=== PATIENT | male | born 1970 | race Caucasian/White ===

== ENCOUNTER 2018-04-27 11:58 | Emergency (ER) | payer OTHER ==
[~2018-04-27] VITALS: Ht 180.3 cm; Wt 111.8 kg
[2018-04-27] MEDS ORDERED: TOPI25TA10 (12:29)
[2018-04-27] MEDS ORDERED: VENL150T24 (12:29)
[2018-04-27] MEDS ORDERED: ASPI1TAB15 (12:29)
[2018-04-27] MEDS ORDERED: GABA-843 PO (12:29)
[2018-04-27] MEDS ORDERED: LOPR1TAB6 PO (12:29)
[2018-04-27] MEDS ORDERED: novolog insulin pump (12:29)
[2018-04-27] MEDS ORDERED: LIPI20TA PO (12:29)
[2018-04-27] MEDS ORDERED: TRAZ-160 PO (12:29)
[2018-04-27] MEDS ORDERED: LISI-538 PO (12:29)
[2018-04-27 12:41] LABS: BASO # 0.1 10^3/uL (0.0-0.2); EOS # 0.6 10^3/uL (0.0-0.50); EOS % 9.3 % (0.0-3.0); HEMATOCRIT 43.9 % (42.0-52.0); LYMPH # 1.7 10^3/uL (1.5-4.5); LYMPH % 26.8 % (24.0-44.0); MEAN CORPUSCULAR HEMOGLOBIN 30.6 pg (27.0-33.0); MEAN CORPUSCULAR HGB CONC 34.2 g/dl (32.0-36.5); MEAN CORPUSCULAR VOLUME 89.6 fl (80.0-96.0); MONO # 0.5 10^3/uL (0.0-0.8); MONO % 7.4 % (0.0-5.0); NEUTROPHILS # 3.4 10^3/uL (1.8-7.7); NEUTROPHILS % 55.2 % (36.0-66.0); PLATELET COUNT, AUTOMATED 205 10^3/uL (150-450); WHITE BLOOD COUNT 6.2 10^3/uL (4.0-10.0)
[2018-04-27 13:15] LABS: ALT/SGPT 42 U/L (12-78); BILIRUBIN,DIRECT 0.2 MG/DL (0.0-0.2); BILIRUBIN,TOTAL 0.7 MG/DL (0.2-1.0); BLOOD UREA NITROGEN 15 MG/DL (7-18); CALCIUM LEVEL 8.5 MG/DL (8.5-10.1); CARBON DIOXIDE LEVEL 27 MEQ/L (21-32); CHLORIDE LEVEL 106 MEQ/L (98-107); CPK CREATINE PHOSPHOKINASE 70 U/L (39-308); FREE T4 0.84 NG/DL (0.76-1.46); GLOMERULAR FILTRATION RATE > 60.0 (>60); GLUCOSE, FASTING 154 MG/DL (70-100); LIPASE 69 U/L (73-393); MB/CK RELATIVE INDEX 1.71 (< OR =4); POTASSIUM SERUM 4.2 MEQ/L (3.5-5.1); SODIUM LEVEL 140 MEQ/L (136-145); TOTAL PROTEIN 6.6 GM/DL (6.4-8.2); TROPONIN I < 0.02 NG/ML (< 0.10)
[2018-04-27 13:20] LABS: INR 0.95; PROTHROMBIN TIME 12.8 SECONDS (12.1-14.4)
[2018-04-27 13:21] LABS: PARTIAL THROMBOPLASTIN TIME 29.5 SECONDS (25.4-37.6)
[2018-04-27] MEDS ORDERED: ISOVUE-370 76% 100ML VIAL (Q9967) As Ordered ONE (13:44)
[2018-04-27] MEDS ORDERED: CLOPIDOGREL 300 MG TAB (PLAVIX) PO STA (14:52)
[2018-04-27] MEDS ORDERED: HEPARIN DRIP 25,000 UNITS in APPROPRIATE DILUENT 1 EA IV SCH (14:53)
[2018-04-27] MEDS ORDERED: HEPARIN SOD (PORCINE) 5000 UNITS/ML VIAL IV ONE (15:00)
[2018-04-27] MEDS ORDERED: HEPARIN 25,000 UNITS/250 ML D5W BAG (100 UNITS/ML) As Ordered ONE (15:02)
--- NOTE | 2018-04-27 15:27 | REP ---
CT ANGIOGRAM CHEST: CT ANGIO CHEST: TECHNIQUE: Axial contrast enhanced images from the thoracic inlet to the upper abdomen using 100 mL Isovue 370 intravenous contrast material with multiplanar reformations. There is no CT evidence of pulmonary embolism. The ascending thoracic aorta is dilated up to 4.7 cm in AP dimension. No aortic dissection is seen. Heart appears slightly enlarged. There is no pleural or pericardial effusion. There is on mediastinal, hilar, or chest wall lymphadenopathy. There is no infiltrate in either lung. There is a small hiatal hernia. In the visualized portions of the upper abdomen a cyst is seen in the upper pole of each kidney, the larger is on the left 3.8 cm in diameter. These are only partially imaged. IMPRESSION: No CT evidence of pulmonary embolism. Dilated ascending thoracic aorta with a maximum AP diameter of 4.7 cm. No evidence of aortic dissection. Small hiatal hernia. Electronically Signed by Rogelio Franks MD 04/27/2018 05:25 P
[2018-04-27 15:55] VITALS: BP 146/78
--- NOTE | 2018-04-27 21:13 | ECGEPIP ---
Stationary ECG Study [facility] - ED Test Date: 2018-04-27 Pat Name: FRANCISCO CHEUNG Department: Room: - Gender: M Accredited Legal Secretary: JOSE : 1970 Requested By: KWAKU Yang Order Number: [id number] Reading MD: Ruben Silverman Measurements Intervals [place] Rate: 57 P: 17 OR: 204 QRS: -78 QRSD: 113 T: 28 QT: 387 QTc: 377 Interpretive Statements SINUS BRADYCARDIA INDETERMINATE AXIS PATTERN CONSISTENT WITH PULMONARY DISEASE MODERATE INTRAVENTRICULAR CONDUCTION DELAY NO PRIORS FOR COMPARISON Electronically Signed On 04-27-2018 21:13:18 EST by Ruben Silverman
== END 2018-04-27 15:56 | disposition short-term general hospital (02) ==
LOC: M ED 11:58
DX: I20.0 Unstable angina (principal); E11.42 Type 2 diabetes mellitus with diabetic polyneuropathy; I10 Essential (primary) hypertension; E78.5 Hyperlipidemia, unspecified; G47.33 Obstructive sleep apnea (adult) (pediatric)
CPT/HCPCS: 71275; 80048; 80076; 82550; 82553; 83690; 84439; 84443; 84484; 85025; 85610; 85730; 93005; 93041; 94760; 99285; Q9967

== ENCOUNTER → 2018-06-09 | Outpatient (CLI) | payer OTHER ==
[~2018-06-09] MED LIST: ASPI1TAB15; E-Z-GAS II EFFERVESCENT PACKET (SODIUM BICARB./CITRIC ACID/SIMETHICONE) As Ordered ONE; E-Z-HD 98% w/w 340GM SUSP BTL As Ordered ONE; E-Z-PAQUE 96% w/w SUSP 176GM BTL As Ordered ONE; GABA-843 PO; LIPI20TA PO; LISI-538 PO; LOPR1TAB6 PO; TOPI25TA10; TRAZ-160 PO; VENL150T24; novolog insulin pump
--- NOTE | 2018-06-09 09:40 | REP ---
Examination Requested: Esophagram Barium Swallow Reason For Patient Visit: Gastro-Esophageal Reflux Disease Without Esophagitis. Reason For Exam/Comment: GERD W/O Esophagitis Esophagram The procedure was performed under the personal supervision of Dr. Austin. The images were reviewed with Dr. Austin. A single PA chest x-ray is submitted as a ordinary seaman film. The superior mediastinal structures are midline. The heart size is within normal limits. The lungs are clear. Liquid barium and gas producing granules were given in the erect position as well as liquid barium in the prone oblique positions in order to perform a double contrast esophagram examination. Oral and pharyngeal stages of the examination were unremarkable. Esophageal transport is efficient and there is no esophagitis, stricture, or mucosal ring noted. There is is a small hiatal hernia noted. Gastroesophageal reflux is demonstrated past the level of the paige. Impression: 1. There is a small hiatal hernia. 2. There is gastroesophageal reflux past the level of the paige. 0.9 minutes of fluoroscopy time was utilized for this procedure. Reviewed by CEE Gomes 06/09/2018 09:04 A Electronically Signed by Kelvin Austin MD 06/09/2018 09:30 A
== END ==
LOC: M RAD 07:58
PROVIDERS: ATTEND Internal Medicine Cardiovascular Disease
DX: K21.9 Gastro-esophageal reflux disease without esophagitis (principal); K44.9 Diaphragmatic hernia without obstruction or gangrene

== ENCOUNTER → 2021-03-28 | Outpatient (CLI) | payer OTHER ==
[~2021-03-28] MED LIST changes: +ASPI-546; -ASPI1TAB15; +GABA-282 PO; -GABA-843 PO; -LISI-538 PO; +LISI20TA33 PO; -TRAZ-160 PO; +TRAZ-252 PO
== END ==
LOC: M RAD 07:45
PROVIDERS: ATTEND Physician Assistant Medical
DX: R13.10 Dysphagia, unspecified (principal); K21.9 Gastro-esophageal reflux disease without esophagitis; K44.9 Diaphragmatic hernia without obstruction or gangrene

== ENCOUNTER → 2021-04-28 | Outpatient (CLI) | payer OTHER ==
[~2021-04-28] MED LIST changes: +BUPR150T12 PO; -E-Z-GAS II EFFERVESCENT PACKET (SODIUM BICARB./CITRIC ACID/SIMETHICONE) As Ordered ONE; -E-Z-HD 98% w/w 340GM SUSP BTL As Ordered ONE; -E-Z-PAQUE 96% w/w SUSP 176GM BTL As Ordered ONE; +PANT40TA29 PO; +ROSU40TA4 PO; +SERT-141 PO; +THERTAB52 PO
== END ==
LOC: M LABSMTC 09:47
PROVIDERS: ATTEND Anesthesiology
DX: Z01.812 Encounter for preprocedural laboratory examination (principal); Z20.822 Contact with and (suspected) exposure to COVID-19

== ENCOUNTER 2021-05-02 07:12 | Day surgery (SDC) | payer OTHER ==
[~2021-05-02] VITALS: Ht 180.3 cm; Wt 109.8 kg
[~2021-05-02 07:12] MED LIST changes: +NS 1,000 ML IV ONE
[2021-05-02] MEDS ORDERED: LIDOCAINE 2% 100MG/5ML SDV (FOR ANES.) As Ordered ONE (07:14)
[2021-05-02] MEDS ORDERED: fentaNYL 100 MCG/2 ML INJECTION As Ordered ONE (07:14)
[2021-05-02] MEDS ORDERED: propofoL 500 MG/50 ML VIAL As Ordered ONE (07:14)
[2021-05-02 09:30] VITALS: BP 116/70
== END 2021-05-02 09:50 | disposition home or self-care (01) ==
LOC: M OPP 07:12
PROVIDERS: ATTEND Internal Medicine Gastroenterology
DX: Z12.11 Encounter for screening for malignant neoplasm of colon (principal); Z80.0 Family history of malignant neoplasm of digestive organs; K57.30 Diverticulosis of large intestine without perforation or abscess without bleeding; K64.8 Other hemorrhoids; K44.9 Diaphragmatic hernia without obstruction or gangrene; K22.89 Other specified disease of esophagus; K29.70 Gastritis, unspecified, without bleeding; R13.10 Dysphagia, unspecified; R12 Heartburn; Z79.4 Long term (current) use of insulin; Z79.82 Long term (current) use of aspirin; Z79.899 Other long term (current) drug therapy; Z80.3 Family history of malignant neoplasm of breast
CPT/HCPCS: 43239; 45378; 88305; J3010

== ENCOUNTER → 2021-08-28 | Outpatient (CLI) | payer OTHER ==
[~2021-08-28] MED LIST changes: -NS 1,000 ML IV ONE
[2021-08-28 15:45] LABS: ALBUMIN 3.7 GM/DL (3.2-5.2); BLOOD UREA NITROGEN 16 MG/DL (7-18); CALCIUM LEVEL 8.5 MG/DL (8.5-10.1); CARBON DIOXIDE LEVEL 31 MEQ/L (21-32); CHLORIDE LEVEL 106 MEQ/L (98-107); GLOMERULAR FILTRATION RATE > 60.0 (>56); GLUCOSE, FASTING 138 MG/DL (70-100); POTASSIUM SERUM 3.8 MEQ/L (3.5-5.1); SODIUM LEVEL 141 MEQ/L (136-145)
== END ==
LOC: M PLALAB 13:25
PROVIDERS: ATTEND Internal Medicine Cardiovascular Disease
DX: I11.9 Hypertensive heart disease without heart failure (principal); I71.2 Thoracic aortic aneurysm, without rupture

== ENCOUNTER → 2021-09-01 | Outpatient (CLI) | payer OTHER ==
[~2021-09-01] MED LIST changes: +ISOVUE-370 76% 100ML VIAL ONE
== END ==
LOC: M PLAIMG 08:57
PROVIDERS: ATTEND Internal Medicine Cardiovascular Disease
DX: I71.2 Thoracic aortic aneurysm, without rupture (principal); I35.9 Nonrheumatic aortic valve disorder, unspecified; I11.9 Hypertensive heart disease without heart failure
CPT/HCPCS: 71275; Q9967